=== PATIENT | male | born 1965 | race African-American/Black ===

== ENCOUNTER 2016-08-20 20:04 | Emergency (ER) | payer OTHER ==
[~2016-08-20 20:04] MED LIST: CYCL5TAB PO; DARV PO; NAPR250T57 PO; Z.0.NO CURRENT MEDS
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
[2016-08-20 20:15] VITALS: BP 167/89; PULSE 81; RESP 16; TEMP 98.6; O2SAT 99
[2016-08-20] MEDS ORDERED: ACETAMINOPHEN/HYDROcodone 325 MG/5 MG TAB PO ONE (20:15)
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
[2016-08-20] MEDS ORDERED: NAPR500T PO ×2 (21:50→21:52)
[2016-08-20] MEDS ORDERED: CYCL1TAB29 PO ×2 (21:50→21:52)
== END 2016-08-20 22:54 | disposition home or self-care (01) ==
LOC: NEPC 20:04
DX: S16.1XXA Strain of muscle, fascia and tendon at neck level, initial encounter (principal); M54.6 Pain in thoracic spine; Z72.0 Tobacco use; Z87.39 Personal history of other diseases of the musculoskeletal system and connective tissue; V89.2XXA Person injured in unspecified motor-vehicle accident, traffic, initial encounter; Y92.410 Unspecified street and highway as the place of occurrence of the external cause
CPT/HCPCS: 72125